=== PATIENT | male | born 1990 | race African-American/Black ===

== ENCOUNTER 2017-03-02 20:42 | Emergency (ER) | payer SELFPAY ==
[~2017-03-02] VITALS: Ht 175.3 cm; Wt 58.5 kg
[2017-03-02 20:48] VITALS: BP 134/70; PULSE 74; RESP 17; TEMP 99; O2SAT 99
--- NOTE | 2017-03-02 21:25 | PD ---
HPI Chief Complaint: Complaint Time Seen by Provider: 21:20 Travel History International Travel<30 days: No Contact w/Intl Traveler<30days: No Traveled to known affect area: No History of Present Illness HPI This is a 26-year-old male who presents for evaluation of dysuria. Symptoms started 2 days ago. He reports a burning sensation when he urinates. He endorses mild suprapubic discomfort when he is urinating but none currently. He reports some clear colored urethral discharge as well. He denies any generalized abdominal pain, testicular or scrotal pain, nausea or vomiting, diarrhea or constipation, fevers or chills, flank pain. He reports that for the past 2-3 months he has had a new female sexual partner and they do not use any barrier contraception currently. He has no other complaints at this time. COUNTS INCLUDE 234 BEDS AT THE [facility] Past Medical History Medical History: Denies Significant Hx Tetanus Vaccination: > 5 Years Influenza Vaccination: No ?: Not Past Surgical History Surgical History: No Previous Surgery Social History Alcohol Use: Yes (/OCCASSIONALLY) Tobacco Use: No Substance Use: Yes (DAILY MARIJUANA) Allergies-Medications (Allergen,Severity, Reaction): Coded Allergies: No Known Allergies (Unverified , 03/02/17) Reported Meds & Prescriptions Reported Meds & Active Scripts Active Bactrim DS (Sulfamethoxazole-Trimethoprim) 800-160 Mg Tab 1 Tab PO BID Review of Systems Except as stated in HPI: all other systems reviewed are Neg Physical Exam Narrative GENERAL: Well-developed well-nourished male in no acute distress SKIN: Warm and dry. No rash HEAD: Atraumatic. Normocephalic. EYES: Pupils equal and round. No scleral icterus. No injection or drainage. ENT: No nasal bleeding or discharge. Mucous membranes pink and moist. NECK: Trachea midline. No JVD. CARDIOVASCULAR: Regular rate and rhythm. No murmur appreciated. RESPIRATORY: No accessory muscle use. Clear to auscultation. Breath sounds equal bilaterally. GASTROINTESTINAL: Abdomen soft, non-tender, nondistended. Hepatic and splenic margins not palpable. examination reveals normal-appearing circumcised penis , there is no urethral discharge, no tenderness to palpation of the scrotum or testicles. MUSCULOSKELETAL: No obvious deformities. No edema. NEUROLOGICAL: Awake and alert. No obvious cranial nerve deficits. Motor grossly within normal limits. Normal speech. PSYCHIATRIC: Appropriate mood and affect; insight and judgment normal. Data Data Last Documented VS Vital Signs Date Time Temp Pulse Resp B/P (MAP) Pulse Ox O2 Delivery O2 Flow Rate FiO2 03/02/17 20:48 99.0 74 17 134/70 (91) 99 Orders Orders Urinalysis - C+S If Indicated (03/02/17 21:19) Gc And Chlamydia Pcr (03/02/17 21:19) Urine Culture (03/02/17 21:30) Azithromycin Powd Pack (Zithromax Powd P (03/02/17 22:00) Ceftriaxone Inj (Rocephin Inj) (03/02/17 22:00) Lidocaine 1% Inj (50 Ml) (Xylocaine 1% I (03/02/17 22:00) Labs Laboratory Tests Test 03/02/17 21:30 Urine Color YELLOW Urine Turbidity SLIGHT Urine pH 6.0 Urine Specific [place] 1.030 Urine Protein NEG mg/dL Urine Glucose (UA) NEG mg/dL Urine Ketones NEG mg/dL Urine Occult Blood TRACE Urine Nitrite NEG Urine Bilirubin NEG Urine Leukocyte Esterase TRACE Urine RBC 3-5 /hpf Urine WBC 25-49 /hpf Urine Squamous Epithelial Cells 0-5 /hpf Urine Bacteria RARE /hpf Microscopic Urinalysis Comment CULTURE INDICATED MDM Medical Decision Making Medical Screen Exam Complete: Yes Emergency Medical Condition: Yes Medical Record Reviewed: Yes Differential Diagnosis Gonococcal urethritis versus chlamydial urethritis versus cystitis Narrative Course This is a 26-year-old male who presents with 2 days of dysuria. His abdomen is soft and nontender. He has no scrotal or testicular pain. He reports a new female sexual partner for the past 2-3 months and they do not currently use any barrier contraception. Certainly his symptoms are suspicious for gonococcal or chlamydial urethritis. Plan is for GC/chlamydia probe and, while pending, would recommend empiric treatment with azithromycin and Rocephin. A urinalysis was also obtained. Urinalysis reveals pyuria and therefore pending culture results the patient is also being discharged with Bactrim. Diagnosis Primary Impression: Urethritis Additional Instructions: Medication as prescribed. No sexual contact until clinically gonorrhea results are received. Return for any emergent medical conditions. Med/Other Pt SpecificInfo: Prescription(s) given Scripts Sulfamethoxazole-Trimethoprim (Bactrim DS) 800-160 Mg Tab 1 TAB PO BID for Infection, #14 TAB 0 Refills Prov: Olive Nunez MD 03/02/17 Disposition: 01 DISCHARGE HOME Condition: Stable Rom Arias Mar 02, 2017 21:25
[2017-03-02 21:43] LABS: GLUCOSE,URINE NEG (NEG); KETONE, URINE NEG (NEG); NITRITE,URINE NEG (NEG)
[2017-03-02 21:47] LABS: BLOOD, URINE TRACE (NEG)
[2017-03-02 21:48] LABS: URINE COLOR YELLOW (YELLW/STRAW)
[2017-03-02 21:49] LABS: BACTERIA, URINE RARE /hpf; SQUAMOUS EPITHELIAL CELL URINE 0-5 /hpf (0-5)
[2017-03-02 21:50] LABS: COMMENT (UR) CULTURE INDICATED; CULTURE IF INDICATED CULTURE INDICATED
[2017-03-02] MEDS ORDERED: cefTRIAXone 250 MG VIAL IM ONE (22:00)
[2017-03-02] MEDS ORDERED: AZITHROMYCIN PWD FOR SUSP 1 GM PACKET PO ONE (22:00)
[2017-03-02] MEDS ORDERED: LIDOCAINE HCL 1% 50 ML VIAL XX ONE (22:00)
[2017-03-02] MEDS ORDERED: BACT800T5 PO (22:17)
[2017-03-02 22:46] VITALS: BP 128/70; PULSE 70; RESP 15; TEMP 98.7; O2SAT 99
[2017-03-03 04:03] LABS: CHLAMYDIA PCR DETECTED (NOT DETECT); NEISSERIA PCR NOT DETECTED (NOT DETECT)
== END 2017-03-02 23:22 | disposition home or self-care (01) ==
LOC: PHED 20:42
DX: N34.2 Other urethritis (principal)
CPT/HCPCS: 81001; 87086; 87491; 87591; 96372; 99284; J0696